=== PATIENT | male | born 1960 | race Caucasian/White ===

== ENCOUNTER 2019-08-19 16:47 | Emergency (ER) | payer SELFPAY ==
[2019-08-19 16:55] VITALS: BP 147/107
[2019-08-19] MEDS ORDERED: TETANUS,DIPH,PERTUSS(ACELL) VACCINE 0.5 ML SYRINGE IM ONE (16:58)
--- NOTE | 2019-08-19 17:01 | Event Note ---
ED Screening Note Date of service: 08/19/19 Time: 16:57 ED Screening Note: c/o right foot laceration x today Pt states he stepped on a nut This initial assessment/diagnostic orders/clinical plan/treatment(s) is/are subject to change based on patients health status, clinical progression and re- assessment by fellow clinical providers in the ED. Further treatment and workup at subsequent clinical providers discretion. Patient/guardian urged not to elope from the ED as their condition may be serious if not clinically assessed and managed. Initial orders include: tetanus vaccination
--- NOTE | 2019-08-19 17:43 | Emergency Department Report ---
- General Chief Complaint: Extremity Injury, Lower Stated Complaint: LAC TO RT LEG Time Seen by Provider: 08/19/19 17:17 Source: patient, family Mode of arrival: Wheelchair Limitations: No Limitations - History of Present Illness -: Sudden, This afternoon Extremity Location: Right: Foot Place: other (judaism) Patient Tetanus UTD: No (30 years ago, given in ER ) Context: accidental Associated Symptoms: pain. denies: loss of feeling/numbness, suspect foreign body present, unable to move injured part, weakness followed by dizziness, nausea/vomiting, fever - Related Data Allergies Allergy/AdvReac Type Severity Reaction Status Date / Time No Known Allergies Allergy Unverified 08/19/19 16:52 ED Review of Systems ROS: Stated complaint: LAC TO RT LEG Other details as noted in HPI Comment: All other systems reviewed and negative Constitutional: denies: chills, fever Cardiovascular: denies: chest pain Musculoskeletal: denies: back pain ED Past Medical Hx - Past Medical History Previous Medical History?: No - Surgical History Past Surgical History?: No - Social History Smoking Status: Never Smoker Substance Use Type: None ED Physical Exam - General Limitations: No Limitations General appearance: alert, in no apparent distress - Head Head exam: Present: atraumatic, normocephalic - Respiratory Respiratory exam: Present: normal lung sounds bilaterally - Cardiovascular Cardiovascular Exam: Present: normal heart sounds - Expanded Lower Extremity Exam Right Foot/Toe exam: Present: laceration (5 cm laceration, ) Neuro vascular tendon exam: Present: no vascular compromise ED Course Vital Signs 08/19/19 16:52 Temperature 97.9 F Pulse Rate 91 H Respiratory 18 Rate Blood Pressure 147/107 O2 Sat by Pulse 100 Oximetry - Laceration /Wound Repair Right Foot Wound Location: lower extremity Wound's Depth, Shape: irregular, flap Wound Explored: no foreign body removed Irrigated w/ Saline (ccs): 100 Betadine Prep?: Yes Anesthesia: 1% Lidocaine Wound Debrided: minimal Wound Repaired With: sutures Suture Size/Type: 3:0, nylon Number of Sutures: 5 Layer Closure?: No Sterile Dressing Applied?: Yes Critical care attestation.: If time is entered above; I have spent that time in minutes in the direct care of this critically ill patient, excluding procedure time. ED Disposition Clinical Impression: Laceration of foot Disposition: DC-01 TO HOME OR SELFCARE Is pt being admited?: No Condition: Stable Instructions: Laceration (ED), Suture Care (ED) Referrals: PRIMARY CARE, [Referring] - 3-5 Days
== END 2019-08-19 18:19 | disposition home or self-care (01) ==
LOC: ED 16:47
DX: S91.311A Laceration without foreign body, right foot, initial encounter (principal); W22.8XXA Striking against or struck by other objects, initial encounter; Y93.89 Activity, other specified; Y92.89 Other specified places as the place of occurrence of the external cause; Y99.8 Other external cause status
CPT/HCPCS: 90471; 90715